=== PATIENT | male | born 1965 | race Caucasian/White ===

== ENCOUNTER 2017-03-20 06:42 | Day surgery (SDC) | payer BC ==
[2017-03-13 08:34] VITALS: BMI 32.0
--- NOTE | 2017-03-19 12:55 | HISTORY & PHYSICAL EXAMINATION ---
DATE OF ADMISSION: 03/20/2017 HISTORY OF PRESENT ILLNESS: The patient presents as a 51-year-old white male, 217 pounds, 69 inches height, with complaints of ongoing pain about his right shoulder. He presents with a full-thickness tear of his rotator cuff for arthroscopic evaluation, arthroscopic rotator cuff repair, subacromial decompression pending findings at the time of surgery. He has been nonresponsive to conservative therapy including physical therapy, anti-inflammatories, relative rest, activity modification, injections, and presents for arthroscopic evaluation. PAST MEDICAL HISTORY: Significant for hypertension as well as irregular heart rate. He denies a history of lung or other metabolic abnormalities. No history of diabetes or thyroid disease noted. 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 FAMILY HISTORY: Otherwise unremarkable. SOCIAL HISTORY: The patient denies a history of smoking. Relates 2 alcoholic drinks per week. No recreational drug use is noted. PAST SURGICAL HISTORY: Includes left knee arthroscopy with meniscal surgery as well as hernia repair. ALLERGIES TO MEDICATIONS: None. MEDICATIONS: Include lisinopril 20 mg p.o. daily, ranitidine 150 mg p.o. at bedtime, ibuprofen 800 mg p.o. t.i.d. as needed. REVIEW OF SYSTEMS: Otherwise unremarkable. See history of present illness for pertinent positives. PHYSICAL EXAMINATION: GENERAL: Reveals a very pleasant 51-year-old white male, alert and oriented x3 in no acute distress. HEENT: Atraumatic and normocephalic. HEART: Regular at 72 beats per minute. LUNGS: Clear without rales, rhonchi or wheeze noted. ABDOMEN: Soft, nontender, nondistended. Bowel sounds are present in all 4 quadrants. RECTAL: No rectal examination was performed. MUSCULOSKELETAL: Consistent with that of a painful right shoulder with weakness to supraspinatus tendon. PLAN: For arthroscopy, arthroscopic rotator cuff repair, postoperative pain management, DVT prophylaxis, antibiotics as necessary.
[~2017-03-20] VITALS: Ht 175.3 cm; Wt 98.6 kg
[~2017-03-20 06:42] MED LIST: BYSTOLIC PO; CEFAZOLIN 2000MG IV PUSH 10 ML IV SCH; IBUP-1428 PO; LACTATED RINGER'S 1000ML 1,000 ML IV SCH; LISI-729 PO; OXYC-57 PO; PRLSR20 PO; ROPIVACAINE 0.5% 5 MG/ML 30 ML VIAL ONE; ZNTT/150 PO
[2017-03-20 07:05] VITALS: BP 149/96; PULSE 61; TEMP 36.8; O2SAT 98; Ht 175.3 cm; Wt 98.6 kg
--- NOTE | 2017-03-20 07:06 | History & Physical Bridge Note ---
H&P Re-Evaluation Bridge Note: I have examined the patient, reviewed the History & Physical and in the interval since the performance of the History & Physical I have noted the following changes of clinical significance: No changes noted
[2017-03-20] MEDS ORDERED: MIDAZOLAM HCL 1 MG/ML 2ML VIAL ONE ×2 (07:51→07:52)
[2017-03-20] MEDS ORDERED: DEXAMETHASONE SOD INJ 4 MG/ML VIAL ONE (07:51)
[2017-03-20] MEDS ORDERED: LIDOCAINE HCL 2% 2 ML VIAL (20MG/ML) ONE (07:51)
[2017-03-20] MEDS ORDERED: PROPOFOL IV EMULSION 10 MG/ML 20 ML VIAL IV ONE (07:51)
[2017-03-20] MEDS ORDERED: ONDANSETRON INJ 2 MG/ML 2 ML VIAL ONE (07:51)
[2017-03-20] MEDS ORDERED: FENTANYL CITRATE INJ 50 MCG/1 ML 2 ML VIAL ONE (07:52)
[2017-03-20] MEDS ORDERED: ATROPINE SULFATE 0.1 MG/ML 5ML SYR IV PRN (08:00)
[2017-03-20] MEDS ORDERED: EpHEDrine SULFATE INJ 50 MG/ML AMP IV PRN (08:00)
[2017-03-20] MEDS ORDERED: ONDANSETRON INJ 2 MG/ML 2 ML VIAL IV PRN ×2 (08:00→10:45)
[2017-03-20] MEDS ORDERED: HYDROmorphone INJ 1 MG/ML SYR IV PRN (08:00)
[2017-03-20] MEDS ORDERED: FENTANYL CITRATE INJ 50 MCG/1 ML 2 ML VIAL IV PRN (08:00)
[2017-03-20] MEDS ORDERED: EpINEphrine HCL INJ 1 MG/ML 5ML SYRINGE ONE (09:08)
[2017-03-20] MEDS ORDERED: EpHEDrine SULFATE 50MG/5ML SYR ONE (10:23)
[2017-03-20] MEDS ORDERED: GLYCOPYRROLATE INJ 0.2 MG/ML VIAL ONE ×2 (10:25→10:59)
[2017-03-20] MEDS ORDERED: NEOSTIGMINE METHYLSULFATE 5 MG/5 ML SYR ONE (10:25)
[2017-03-20] MEDS ORDERED: SODIUM CHLORIDE 0.9% 1000ML 1,000 ML IV SCH (10:34)
[2017-03-20] MEDS ORDERED: LARYING-O-JET KIT (LTA) ONE ×2 (10:42)
[2017-03-20] MEDS ORDERED: OXYCODONE/ACETAMINOPHEN 5-325 TAB PO PRN ×2 (10:45)
--- NOTE | 2017-03-20 11:07 | [facility] Operative Report ---
Operative Report Operative Date Mar 20, 2017. Pre-Operative Diagnosis Torn Right Rotator Cuff Post-Operative Diagnosis same as pre-operative Procedure(s) Performed Right Shoulder Arthroscopic Acromioplasty, Distal Clavicle Excision, Rotator Cuff Repair utilizing double row technique Surgeon Dr. Jun Dooley Gallery Host Surgeon(s) SUSAN Rojas Estimated Blood Loss 5ml Findings Full-thickness tear supraspinous tendon with 2 cm retraction before meals joint DJD impingement syndrome Specimens none per surgeon Complication(s) None Disposition Recovery Room / PACU Indications Patient presents after failing attempts at conservative management abstain acute rupture of his rotator cuff with inability to abduct or elevate his arm presents for rotator cuff repair Description of Procedure After proper prepping and draping the right upper extremity orthoscopic examination beginning the region of the glenohumeral joint reveals a full- thickness tear with retraction supraspinous tendon there is a 50% tear of the biceps tendon as well biceps that was debrided to a stable margin rotator cuff was further evaluated subscaptearwasnotedtheposteriorinferiorcuffwasallintactsupinatorswhichwascomplet cewrvtcbbkzxuoqbrjsewozczrlbykgd6eiznaafwnmnrjrfwynocyhujcuuhnokjaufrmsqkpalhvcf atedorscopicevaluationrevealedevidenceofbeforemealsjointDJDwithinferiorosteophyt essocially adistalclavicleexcisionwasperformedexcisingwithseveredistalclaviclearthroscopica llyutilizingaburtheanteriorinferiorprophylaxiswa sperformedarthroscopicallysociallyrotatorcuffrepairbacktobedofbleedingboneutiliz ingadoubleloaded4.5mmBioSorbanchoraswellasafootp rintswivellockanchortherotatorcuffwascompleterepairofwasnotedbestabletoexcellent qualitybonesociallytheskinwasclosedwith4 - 0nylonasterilecompressivedressingwasplacedpatientwastakentotherecoveryroominstab leconditionoperativereportdictatedbyEllis. I attest to the content of the Intraoperative Record and any orders documented therein. Any exceptions are noted below.
[2017-03-20] MEDS ORDERED: OXYC-57 PO (11:12)
--- NOTE | 2017-03-20 11:28 | Discharge Instructions ---
Discharge Instructions Date of Service Mar 20, 2017. Visit Reason for Visit: Right Shoulder Acute Suprasinatus Tear Discharge Discharge Diagnosis / Problem: right shoulder rotator cuff tear Discharge Goals Goal(s): Decrease discomfort, Improve function, Increase independence Activity Recommendations Activity Limitations: as noted below Anesthesia . Post Anesthesia Instructions: If you have had General Anesthesia or IV Sedation: * Do not drive today. * Resume driving when surgeon permits. * Do not make important decisions or sign legal documents today. * Call surgeon for: 1. Temperature elevations greater than 101 degrees F. 2. Uncontrollable pain. 3. Excessive bleeding. 4. Persistent nausea and vomiting. 5. Medication intolerance (nausea, vomiting or rash). * For nausea and vomiting use only clear liquids such as: tea, soda, bouillon until nausea subsides, then gradually increase diet as tolerated. * If you have any concerns or questions, call your surgeon's office. If physician is unavailable and it is an emergency, call 911 or go to the nearest emergency room. . Instructions / Follow-Up Instructions / Follow-Up U DISCHARGE INSTRUCTIONS: ROTATOR CUFF REPAIR SELF CARE INSTRUCTIONS A. You are permitted to loosen your sling/immobilizer to move your elbow, wrist , and hand to prevent stiffness. You should use your well arm (good arm) to assist the operated extremity when trying to raise the arm away from the body, hygiene purposes. Do NOT actively try to use/engage your shoulder muscles in operative arm at this time. You should NOT do overhead activity, lifting, or attempt to reach behind your back. B. You may/may not be instructed to start Physical Therapy upon discharge depending upon the size and difficulty of the repair. You will be provided a prescription for therapy with specific restrictions, if needed, at time of discharge. C. At 48 hours post-operatively, you may change your dressing. (Leave white steri-strips intact if present). Use band-aids and change daily. You are allowed to shower at this time and get the incision area wet, but DO NOT soak or submerge incision area in water. (No baths, swimming pools, hot tubs) D. Do NOT apply soap or any ointment/lotions directly over incision. E. You may use ice as needed to operative shoulder SPECIAL CARE INSTRUCTIONS: VERY IMPORTANT TO READ AND REVIEW A. There are a few signs you need to watch for after you are home. Call [facility] at [phone] if you experience any of the following: a. Increased severe shoulder pain. Some pain is expected especially when you exercise b. Increased swelling in your shoulder or arm; pain or swelling in either upper extremity. (Note: swelling and stiffness is normal and expected for several weeks post op, depending on type of shoulder surgery you had). c. Any fluid or drainage from the incision; redness of the incision. d. Shortness of breath or chest pain. B. Please call [facility] at [phone] if you have any questions or concerns about your operation or recovery. C. Call your physician if: a. Temperature is greater than 101 degrees (F). b. Pain is not relieved by prescribed pain medications. c. Increase drainage or redness from incision. d. Unanswered questions or concerns. D. Pain Medication: a. You will be prescribed pain medication upon discharge that should last till your first post-operative appointment. b. If you experience nausea and/or skin rash, discontinue this medication and contact our office for an alternative medication. c. Caution- narcotic pain medication can cause constipation. FOLLOW UP VISIT: Please call [facility] at [phone] to schedule a follow up appointment 10-14 days from your surgery date. Diet Recommendations Recommended Home Diet: resume previous diet Procedures Procedures Performed: Right Shoulder Arthroscopic Acromioplasty, Distal Clavicle Excision, Rotator Cuff Repair utilizing double row technique Pending Studies Studies pending at discharge: no Medical Emergencies . Who to Call and When: Medical Emergencies: If at any time you feel your situation is an emergency, please call 911 immediately. . Non-Emergent Contact Non-Emergency issues call your: Primary Care Provider, Surgeon . . "Provider Documentation" section prepared by Stephen Portillo. . [place] Drug Monitoring Program Search Results: patient reviewed within database, no issues identified Drug Monitoring Findings: Please only fill narcotics with one provider, we will prescribe during the initial 90day post op period.
--- NOTE | 2017-03-20 11:56 | Anesthesiology Progress Note ---
Anesthesia Post Op Note Date & Time Mar 20, 2017 at 11:55 Vital Signs Pain Intensity: 0 Vital Signs Past 12 Hours Date Time Temp Pulse Resp B/P (MAP) Pulse Ox O2 Delivery O2 Flow Rate FiO2 03/20/17 11:16 36 62 14 141/91 97 Mask 9 03/20/17 07:05 36.8 61 20 149/96 (113) 98 Room Air Notes Mental Status: alert / awake / arousable, participated in evaluation Pt Amnestic to Procedure: Yes Nausea / Vomiting: adequately controlled Pain: adequately controlled Airway Patency, RR, SpO2: stable & adequate BP & HR: stable & adequate Hydration State: stable & adequate Anesthetic Complications: no major complications apparent
[2017-03-20 12:08] VITALS: BP 138/77; PULSE 68; TEMP 36.6; O2SAT 98
[2017-03-20 12:38] VITALS: BP 143/85; PULSE 69; O2SAT 94
[2017-03-20 13:08] VITALS: BP 148/80; PULSE 70; O2SAT 95
--- NOTE | 2017-03-23 13:41 | EDITING REQUIRED CODING QUERY ---
CQMENISCUS TEAR To promote full compliance with coding requirements relating to patient care physician participation is requested in all cases of malt loader uncertainty. Please assist us with the question(s) below: Please specify the type of Meniscus Tear by placing an "X" within the parenthesis (). If other please document type. (x) Current Injury WAS THIS AN INJUIRY OR WAS THIS A PATHOLOGICAL TEAR WITH NO () Old Injury INJURY? () Other: (Please Specify) Thank you Rea Brock
== END 2017-03-20 13:12 | disposition home or self-care (01) ==
LOC: C.ACU 06:42
PROVIDERS: ATTEND Orthopaedic Surgery
DX: S46.011A Strain of muscle(s) and tendon(s) of the rotator cuff of right shoulder, initial encounter (principal); S46.211A Strain of muscle, fascia and tendon of other parts of biceps, right arm, initial encounter; M25.511 Pain in right shoulder; M19.011 Primary osteoarthritis, right shoulder; M75.41 Impingement syndrome of right shoulder; X58.XXXA Exposure to other specified factors, initial encounter; I10 Essential (primary) hypertension